=== PATIENT | female | born 1985 | race African-American/Black ===

== ENCOUNTER 2017-05-24 17:10 | Emergency (ER) | payer OTHER ==
--- NOTE | ~2017-05-24 | CT4 ---
[facility] A Service of [facility] & [facility] RADIOLOGY TEXT RESULTS PATIENT: VERA PINEDO LOCATION: [facility] : 81 UNIT #: [id number] AGE: [address]: Jayme Avalos MD SEX: F ORDER DR: [id number] [facility] [address] [place], [place] [address] [id number] E MR#: [id number] Acc #: [id number] NAME: VERA PINEDO : 1985 SEX: F STUDY DATE/TIME: 05/24/2017 22:01 UNIT: [facility] ROOM: STUDY DESCRIPTION: CT Abd and Pelv Wo Cont Attending Physician: Jayme Avalos M.D. Ordering Physician: Jayme Avalos M.D. Primary Care Physician: Primary Care Physician No MEDICAL IMAGING REPORT This report is preliminary unless electronic signature is present EXAM CT abdomen and pelvis 05/24/2017 HISTORY Lower abdominal pain for 1 week. Took test last week. It was positive. Negative beta HCG here at hospital today per Dr. Pinedo. FINDINGS CT of the abdomen and pelvis was performed without administration of oral or intravenous contrast. Study limited in the absence of both intravascular and enteric contrast. There are no prior studies for comparison. This CT examination was performed with one or more of the following radiation dose reduction techniques: automatic exposure control, adjustment of mA and/or kV according to patient size, and iterative reconstruction. The lung bases are clear. Heart upper limits of normal in size. Liver unremarkable. Status post cholecystectomy. No biliary obstruction. Spleen, pancreas, adrenal glands unremarkable. No hydronephrosis or nephrolithiasis. No hydroureter and no secondary signs of recent stone passage. No perinephric inflammatory change. CT PELVIS: No inguinal adenopathy. The urinary bladder is unremarkable. Uterus and adnexal regions normal in appearance for a patient of this age. No free fluid in pelvis. No pelvic or retroperitoneal adenopathy. Distal esophagus, stomach, small bowel unremarkable. Appendix normal. Colon remarkable. Unopacified vascular structures unremarkable. No acute-appearing bony abnormality. IMPRESSION 1. No clearly acute abnormality is seen in the abdomen or pelvis. Patient is status post cholecystectomy. There is no biliary ductal dilatation. 2. The pancreas, kidneys, appendix are normal in appearance. 3. Uterus and adnexal regions unremarkable. [facility] A Service of [facility] & [facility] RADIOLOGY TEXT RESULTS PATIENT: VERA PINEDO LOCATION: [facility] : 81 UNIT #: [id number] AGE: [address]: Jayme Avalos MD SEX: F ORDER DR: 4. Remainder of alimentary canal unremarkable. Dictated by... Rob Armenta M.D. THIS IS AN ELECTRONICALLY VERIFIED REPORT Rob Armenta M.D. at 05/25/2017 6:54 PM GEENA/darron TD: 05/25/2017 12:29 JOB #: [id number] MEDICAL IMAGING REPORT Page 1 of 1 COPY
[2017-05-24 20:00] LABS: URINE SOURCE CLEAN CATCH
[2017-05-24 20:09] LABS: BASOPHIL% 0.6 % (0-2.5); EOSINOPHIL# 0.1 X10e3 (0-0.7); EOSINOPHIL% 0.7 % (0.0-7.0); HEMATOCRIT 33.2 % (35.0-45.0); HEMOGLOBIN 10.3 gm/dL (12.0-16.0); LYMPHOCYTE# 2.4 X10e3 (1.0-3.5); LYMPHOCYTE% 33.6 % (17.0-45.0); MEAN CORPUSCULAR HGB CONC 31.1 g/dL (30-36); MEAN PLATELET VOLUME 8.5 FL (6.5-11.5); MONOCYTE# 0.5 X10e3 (0-1.0); MONOCYTE% 7.2 % (3.0-12.0); NEUTROPHIL# 4.2 X10e3 (1.5-7.1); NEUTROPHIL% 57.9 % (40-75); PLATELET COUNT 307 X10e3 (140-420); RED BLOOD COUNT 4.49 X10e (3.90-5.30); RED CELL DISTRIBUTION WIDTH 16.3 % (11.0-15.5); WHITE BLOOD COUNT 7.3 X10e3 (4.0-10.5)
[2017-05-24 20:10] LABS: URINE APPEARANCE CLEAR; URINE BILIRUBIN NEG (NEG); URINE BLOOD NEG (NEG); URINE COLOR YELLOW; URINE GLUCOSE NEG (NEG); URINE KETONE NEG (NEG); URINE LEUKOCYTE ESTERASE NEG (NEG); URINE NITRATE NEG (NEG); URINE PROTEIN NEG (NEG); URINE UROBILINOGEN 0.2 MG/DL (NEG)
[2017-05-24 20:12] LABS: DIFF IND NO
[2017-05-24 20:17] LABS: CULTURE INDICATED? NO
[2017-05-24 20:28] LABS: ALKALINE PHOSPHATASE 71 U/L (32-92); ALT (SGPT) 12 U/L (10-40); AST (SGOT) 13 U/L (10-42); BILIRUBIN,TOTAL 0.7 mg/dL (0.2-2.0); BLOOD UREA NITROGEN 20 mg/dL (9-23); BUN/CREATININE RATIO 18.18; CALCIUM SERUM 9.1 mg/dL (8.4-10.2); CARBON DIOXIDE 28 mmol/L (22-31); CHLORIDE 98 mmol/L (100-111); CREATININE SERUM 1.1 mg/dL (0.6-1.4); GLOM FILT RATE Estimated 76.4 mL/min (>60); GLUCOSE FASTING 100 mg/dL (70-110); LIPASE 18 U/L (22-51); POTASSIUM 3.6 mmol/L (3.5-5.1); PROTEIN TOTAL SERUM 7.7 g/dL (6.0-8.3); SODIUM 133 mmol/L (135-145)
[2017-05-24 20:32] LABS: BILIRUBIN, DIRECT <0.1 mg/dL (0.0-0.2); BILIRUBIN,INDIRECT 0.6 mg/dL (0.0-0.9)
== END 2017-05-24 23:35 | disposition home or self-care (01) ==
LOC: CED 17:10
DX: R10.84 Generalized abdominal pain (principal); I10 Essential (primary) hypertension; Z91.040 Latex allergy status; Z88.8 Allergy status to other drugs, medicaments and biological substances; Z91.018 Allergy to other foods; Z90.49 Acquired absence of other specified parts of digestive tract
CPT/HCPCS: 36415; 74176; 80048; 80076; 81003; 83690; 84702; 84703; 85025; 99284

== ENCOUNTER 2017-06-24 12:44 | Emergency (ER) | payer OTHER ==
[~2017-06-24] VITALS: Ht 162.6 cm; Wt 95.2 kg
--- NOTE | ~2017-06-24 | CR72 ---
[facility] A Service of [facility] & [facility] RADIOLOGY TEXT RESULTS PATIENT: VERA HUIZAR LOCATION: [facility] : 81 UNIT #: [id number] AGE: [address]: Herber Carvajal MD SEX: F ORDER DR: [id number] [facility] [address] [place], [place] [address] [id number] E MR#: [id number] Acc #: [id number] NAME: VERA HUIZAR : 1985 SEX: F STUDY DATE/TIME: 06/24/2017 13:14 UNIT: [facility] ROOM: STUDY DESCRIPTION: CR Chest Single View Portable Attending Physician: Herber Carvajal M.D. Ordering Physician: Herber Carvajal M.D. Primary Care Physician: No Primary Care Physician MEDICAL IMAGING REPORT This report is preliminary unless electronic signature is present EXAM Portable chest x-ray, 06/24/2017. HISTORY Coughing up blood for 2 weeks. REPORT AP radiograph of the chest is presented. COMPARISON 12/22/2016 FINDINGS No acute bony abnormality. Heart mildly enlarged. Stable. Lungs are well-inflated. No acute pulmonary disease, pleural effusion or pneumothorax. No suspicious nodule. Dictated by... Rob Armenta M.D. THIS IS AN ELECTRONICALLY VERIFIED REPORT Rob Armenta M.D. at 06/26/2017 7:36 AM GEENA/merlien TD: 06/24/2017 20:59 JOB #: [id number] MEDICAL IMAGING REPORT Page 1 of 1 COPY
--- NOTE | ~2017-06-24 | EKG ---
PATIENT: VERA HUIZAR UNIT #: [id number] Ventricular Rate: 64 BPM Atrial Rate: 64 BPM P-R Interval: 222 ms QRS Duration: 84 ms Q-T Interval: 424 ms QTC Calculation(Bezet): 437 ms P [place]: 50 degrees Calculated R [place]: 35 degrees Calculated T [place]: 54 degrees Diagnosis Line: Sinus rhythm Diagnosis Line: Normal ECG Diagnosis Line: When compared with ECG of 12-NOV-2016 13:53, Diagnosis Line: MI interval has increased Diagnosis Line: Confirmed by RY BOLES MD ([id number]) on 06/25/2017 Diagnosis Line: 7:08:44 PM INTERPRETING MD: ELVI REBOLLAR
[2017-06-24 13:44] LABS: BASOPHIL% 0.7 % (0-2.5); EOSINOPHIL% 0.4 % (0.0-7.0); HEMATOCRIT 33.6 % (35.0-45.0); HEMOGLOBIN 10.7 gm/dL (12.0-16.0); LYMPHOCYTE# 1.6 X10e3 (1.0-3.5); LYMPHOCYTE% 27.7 % (17.0-45.0); MEAN CELL VOLUME 73.5 FL (83-96); MEAN CORPUSCULAR HEMOGLOBIN 23.3 PG (28-34); MEAN CORPUSCULAR HGB CONC 31.8 g/dL (30-36); MEAN PLATELET VOLUME 8.6 FL (6.5-11.5); MONOCYTE# 0.4 X10e3 (0-1.0); MONOCYTE% 6.3 % (3.0-12.0); NEUTROPHIL# 3.8 X10e3 (1.5-7.1); NEUTROPHIL% 64.9 % (40-75); PLATELET COUNT 320 X10e3 (140-420); RED BLOOD COUNT 4.57 X10e (3.90-5.30); RED CELL DISTRIBUTION WIDTH 16.5 % (11.0-15.5); WHITE BLOOD COUNT 5.9 X10e3 (4.0-10.5)
[2017-06-24 14:00] LABS: DIFF IND NO
[2017-06-24 14:06] LABS: POC - CKMB 1.1 ng/mL (0.0-7.9); POC - TROPONIN <0.05 ng/mL (<=0.05)
[2017-06-24 14:11] LABS: ALBUMIN SERUM 3.9 g/dL (3.5-5.0); ALKALINE PHOSPHATASE 70 U/L (32-92); ALT (SGPT) 11 U/L (10-40); AST (SGOT) 16 U/L (10-42); BILIRUBIN,TOTAL 0.5 mg/dL (0.2-2.0); BLOOD UREA NITROGEN 9 mg/dL (9-23); CALCIUM SERUM 8.8 mg/dL (8.4-10.2); CARBON DIOXIDE 26 mmol/L (22-31); CHLORIDE 102 mmol/L (100-111); CREATININE SERUM 0.9 mg/dL (0.6-1.4); GLOM FILT RATE Estimated 96.8 mL/min (>60); GLUCOSE FASTING 102 mg/dL (70-110); POTASSIUM 3.5 mmol/L (3.5-5.1); SODIUM 136 mmol/L (135-145)
[2017-06-24 14:12] LABS: BILIRUBIN, DIRECT <0.1 mg/dL (0.0-0.2); BILIRUBIN,INDIRECT 0.4 mg/dL (0.0-0.9)
== END 2017-06-24 15:15 | disposition home or self-care (01) ==
LOC: CED 12:44
PROVIDERS: Emergency Medicine
DX: R04.2 Hemoptysis (principal); I10 Essential (primary) hypertension; Z91.010 Allergy to peanuts; Z91.040 Latex allergy status; Z79.899 Other long term (current) drug therapy
CPT/HCPCS: 36415; 71010; 80048; 80076; 82553; 84484; 84703; 85025; 85379; 93005; 96374; 99284

== ENCOUNTER 2017-07-28 07:28 | Emergency (ER) | payer OTHER ==
[~2017-07-28] VITALS: Ht 162.6 cm; Wt 97.5 kg
--- NOTE | ~2017-07-28 | CT71 ---
[facility] A Service of [facility] RADIOLOGY TEXT RESULTS PATIENT: VERA HUIZAR LOCATION: [facility] : 81 UNIT #: [id number] AGE: [address]: Sue Gipson SEX: F ORDER DR: [id number] [facility] [address] [place], [place] [address] [id number] E MR#: [id number] Acc #: [id number] NAME: VERA HUIZAR : 1985 SEX: F STUDY DATE/TIME: 07/28/2017 10:29 UNIT: [facility] ROOM: STUDY DESCRIPTION: CT Head Wo Contrast Attending Physician: Sue Gipson Pa-C Ordering Physician: Sue Gipson Pa-C Primary Care Physician: No Primary Care Physician MEDICAL IMAGING REPORT This report is preliminary unless electronic signature is present EXAM Noncontrast CT head, 07/28/2017. HISTORY Fell and hit head last night. Now with headache and blurred vision. Hypertension. COMPARISON Noncontrast CT head 01/05/2017. FINDINGS No acute intracranial hemorrhage, mass lesion, mass effect or midline shift is seen. There is no CT evidence of acute or evolving infarct. Chronic-appearing lacunar infarct versus dilated perivascular space in the right basal ganglia posteriorly, unchanged from prior. Normal ventricular configuration. Globes appear unremarkable. Paranasal sinuses and mastoid air cells are clear. No acute displaced calvarial fracture. IMPRESSION No acute intracranial findings. No significant change from 01/05/2017. Dictated by... Yojana Warren M.D. THIS IS AN ELECTRONICALLY VERIFIED REPORT Yojana Warren M.D. at 07/31/2017 8:33 AM KAMARI/rocio TD: 07/28/2017 17:57 JOB #: [id number] MEDICAL IMAGING REPORT [facility] A Service of [facility] RADIOLOGY TEXT RESULTS PATIENT: VERA HUIZAR LOCATION: [facility] : 81 UNIT #: [id number] AGE: [address]: Sue Gipson SEX: F ORDER DR: Page 1 of 1 COPY
== END 2017-07-28 11:12 | disposition home or self-care (01) ==
LOC: CED 07:28
DX: S00.93XA Contusion of unspecified part of head, initial encounter (principal); I10 Essential (primary) hypertension; Z91.040 Latex allergy status; Z91.010 Allergy to peanuts; Z91.018 Allergy to other foods; W01.0XXA Fall on same level from slipping, tripping and stumbling without subsequent striking against object, initial encounter; Y92.009 Unspecified place in unspecified non-institutional (private) residence as the place of occurrence of the external cause
CPT/HCPCS: 70450; 84703; 99284